=== PATIENT | male | born 1970 | race Hispanic/Latino ===

== ENCOUNTER 2024-10-12 09:51 | Emergency (ER) | payer OTHER, MEDICARE ==
[~2024-10-12] VITALS: Ht 167.6 cm; Wt 80.5 kg
[2024-10-12] MEDS ORDERED: LISINOPRIL10 MG PO (10:07)
[2024-10-12] MEDS ORDERED: METOPROLOL TART50 MG PO (10:07)
[2024-10-12] MEDS: KETOROLAC TROMETHAMINE 60 MG/2 ML VIAL IM ONE (11:04)
[2024-10-12 12:23] VITALS: PULSE 60; RESP 16; TEMP 98.5; O2SAT 98
[2024-10-12] MEDS ORDERED: CYCLOBENZAPRINE5 MG PO (12:57)
== END 2024-10-12 13:12 | disposition home or self-care (01) ==
LOC: FSED 09:55
DX: M54.6 Pain in thoracic spine (principal); M54.50 Low back pain, unspecified; S70.01XA Contusion of right hip, initial encounter; V03.10XA Pedestrian on foot injured in collision with car, pick-up truck or van in traffic accident, initial encounter; Y92.488 Other paved roadways as the place of occurrence of the external cause; I10 Essential (primary) hypertension; F17.210 Nicotine dependence, cigarettes, uncomplicated
CPT/HCPCS: 72128; 72131; 73502; 96372; 99284; J1885